=== PATIENT | female | born 1945 | race Two or more races ===

== ENCOUNTER → 2016-10-12 | Outpatient (CLI) | payer MEDICARE, MEDICAID | END | disposition home or self-care (01) | LOC: CARD 09:55 | PROVIDERS: ATTEND Internal Medicine Cardiovascular Disease | DX: I35.1 Nonrheumatic aortic (valve) insufficiency (principal); R07.89 Other chest pain; I27.2 Other secondary pulmonary hypertension | CPT/HCPCS: 93017; 93325; 93350 ==